=== PATIENT | male | born 1995 ===

== ENCOUNTER → 2022-12-13 09:47 | Outpatient (CLI) | payer OTHER, SELFPAY ==
--- NOTE | ~2022-12-13 | XR_ITS ---
XR fl inj shoulder RT - MR/CT DATE: 12/13/2022 10:46 INDICATION: Acute right shoulder pain TECHNIQUE: The purpose of the procedure, technique were discussed with the patient. The patient gave consent. Timeout procedure was performed. After sterile preparation of the anterior aspect of the right shoulder and placement of sterile drape , 1% lidocaine was administered to the skin and underlying subcutaneous soft tissues at the anterior right shoulder over the injection site. A 22-gauge spinal needle was introduced anteroposteriorly int o the mid to lower right glenohumeral joint space using fluoroscopic guidance. 12 CC mixed gadolinium agent, Omnipaque 350 and 1% lidocaine was injected into the glenohumeral joint space uneventfully wi th confirmation of intra-articular position of the contrast material by fluoroscopy. A single anterop osterior spot image was saved. IMPRESSION: Uneventful uncomplicated fluoroscopically guided glenohumeral intra-articular injection o f 12 CC mixed MR and fluoroscopic contrast agent lidocaine Reviewed, dictated and finalized at [facility]. Reviewed, dictated and finalized at [facility]. ER SHOULDER PAD IMPRESSION: Uneventful uncomplicated fluoroscopically guided glenohumeral intra -articular injection of 12 CC mixed MR and fluoroscopic contrast agent lidocain e
--- NOTE | ~2022-12-13 | MR_ITS ---
EXAMINATION: MR shoulder RT w con DATE: 12/13/2022 11:18 INDICATION: Acute onset right shoulder pain TECHNIQUE: Magnetic resonance imaging (MRI) of the right shoulder was performed following intra-august cular gadolinium contrast injection and without intravenous contrast. Details of the glenohumeral ashutosh nt injection have been dictated separately. Sequences included axial T2-weighted FS FSE, axial T1-we ighted FS FSE, coronal oblique T1-weighted FS FSE, coronal oblique T2-weighted FSE, sagittal T2-weigh jared FS FSE, sagittal T1-weighted FSE, and ABER (abduction external rotation) T1-weighted FS FSE. COMPARISON: None. FINDINGS: Coracoacromial arch: The acromion undersurface is curved in morphology (type II). The coracoacromial ligament is normal. A cromio clavicular joint is normal. Rotator cuff: The subscapularis, infraspinatus and teres minor tendons are normal. The supraspinatus tendon appears normal on the standard planes of imaging however a partial-thickness tear is seen extending through approximately one third of the tendon thickness located 3 mm from the greater tuberosity footplate ca n be seen on ABER images 10-13. The tear measures 1 cm in AP length. Normal rotator cuff muscle bulk and signal. Biceps tendon, glenoid labrum and glenohumeral cartilage: Long head of the biceps tendon is intact. Glenoid labrum is normal. Glenohumeral cartilage is normal. Bones and other: Normal marrow signal with no edema, fracture or abnormal marrow replacing process. No abnormal flui d in the subacromial/subdeltoid bursa to suggest bursitis. IMPRESSION: 1. Mild partial-thickness articular sided tear extending 1 cm AP along the distal supraspinatus tendo n. Reviewed, dictated and finalized at location [facility]. T ABSTRACTOR IMPRESSION: 1. Mild partial-thickness articular sided tear extending 1 cm AP along the dist al supraspinatus tendon.
== END ==
PROVIDERS: PCP Physician Assistant; Visit Provider Physician Assistant
DX: M25.511 Pain in right shoulder (principal); S46.811A Strain of other muscles, fascia and tendons at shoulder and upper arm level, right arm, initial encounter
CPT/HCPCS: 23350; 73222; 77002; A9577; Q9967